=== PATIENT | female | born 1935 | race Caucasian/White ===

== ENCOUNTER 2018-05-24 06:49 | Outpatient (RCR) | payer MEDICARE, BC ==
--- NOTE | 2018-05-23 13:51 | RADIOLOGY IMAGING REPORT ---
FACILITY: [facility] [place] PATIENT NAME: Rogelio Cheney : 1935 MR: [id number] V: [id number] EXAM DATE: ORDERING PHYSICIAN: MALKA VARELA TECHNOLOGIST: Location: [facility] Patient: Rogelio Cheney : 1935 Visit/Account:[id number] Date of Sevice: 05/23/2018 Exam type: KNEE 3 VIEW LEFT History: A contusion, fell 2 months ago, continued pain Comparison: None. Findings: There is no evidence of acute fracture or dislocation involving the left knee. There is mild soft ti ssue swelling noted anteriorly. There is subtle chondrocalcinosis involving the lateral compartment IMPRESSION: 1. Soft tissue swelling over the anterior aspect left knee although no evidence of underlying fractu re or dislocation Report Dictated By: Monique Acevedo MD at 05/23/2018 1:46 PM Report E-Signed By: Monique Acevedo MD at 05/23/2018 1:47 PM [email or web address]
[~2018-05-24 06:49] MED LIST: ALB18R INH; ALBU8.5H11 INH; ALBU8.5H12 IH; AMLO-101 PO; AMLO-96 PO; ASPI-715 PO; ASPI81TA94 PO; AZIT-17 PO; BUDE10.25 IH; CEP500 PO; CEPH-13 PO; CYCL1DRO6 OP; DICY20TA70 PO; ESC10 PO; ESTR-35 PO; ESTR-68 PO; ESTR1TAB17 PO; FLU44R INH; FLUT1DIS28 IH; HYDR12.561 PO; IPRA3AMP10 IH; KET10 PO; LANS15CA38 PO; LEV25 PO; LEV500 PO; LEVO25TA61 PO; LEVO750T27 PO; LIDO700A25 TP; LIDO700A29 TD; MONT10TA4 PO; MULT-1124 PO; MULT-1367 PO; OMEP-218 PO; OXY10 PO; OXYC-823 PO; PER PO; PRE5 PO; PRED20TA6 PO; SIMV-49 PO; TRA50 PO; VICOPROFPT PO; VIT-7 PO; ZINC10LO9 PO; ZOLP-358 PO; [UNRECOGNIZED DRUG - OTHER] BU
--- NOTE | 2018-05-24 12:34 | RADIOLOGY IMAGING REPORT ---
FACILITY: [facility] [place] PATIENT NAME: Rogelio Cheney : 1935 MR: [id number] V: [id number] EXAM DATE: ORDERING PHYSICIAN: MALKA VARELA TECHNOLOGIST: Location: [facility] Patient: Rogelio Cheney : 1935 Visit/Account:[id number] Date of Sevice: 05/24/2018 KNEE LEFT W/O CONTRAST HISTORY: soft tissue swelling of the joint COMPARISON: X-ray 05/23/2018 TECHNIQUE: Multiplanar/multisequence was obtained through the left knee without contrast. Contrast: None FINDINGS: ACL: Intact with a normal contour through the intracondylar notch. PCL: Edema within the PCL consistent with partial tear MCL: Normal LCL: Fibular collateral ligament, biceps femoris tendon and popliteus tendons are intact. Iliotibial band is normal. Medial joint space: Findings concerning for nondisplaced undersurface tearing of the body the medial meniscus on the coronal images. Articular cartilage is normal. Lateral joint space: Mild blunting of the free edge of the lateral meniscal body. Multidirectional, n ondisplaced tearing of the root of the posterior horn the lateral meniscus. Articular cartilage is no rmal. Joint effusion: Small joint effusion. Popliteal cyst: None significant Bone marrow: Normal Quadriceps and patellar tendons: Normal Patellofemoral joint: Moderate segmental thinning of the patellar articular cartilage at the apex and adjacent lateral facet with mild subchondral cystic change. Trochlear cartilage is intact. The retin aculum are intact. No patellar subluxation. Soft tissues: Normal Other findings: None significant IMPRESSION: 1. Multidirectional, nondisplaced tearing of the root of the posterior horn the lateral meniscus. 2. Probable nondisplaced undersurface tearing of the body of the medial meniscus on coronal images. 3. Small joint effusion. 4. Edema within the PCL consistent with partial tear Report Dictated By: Otf Marmolejo MD at 05/24/2018 12:11 PM Report E-Signed By: Otf Marmolejo MD at 05/24/2018 12:31 PM WSN:[email or web address]
== END 2018-05-24 18:00 | disposition home or self-care (01) ==
LOC: EDSTATUS 06:49 → MRI 06:49
PROVIDERS: ATTEND Internal Medicine
DX: S83.282A Other tear of lateral meniscus, current injury, left knee, initial encounter (principal); R22.9 Localized swelling, mass and lump, unspecified; X58.XXXA Exposure to other specified factors, initial encounter